=== PATIENT | male | born 1955 | race Caucasian/White ===

== ENCOUNTER → 2016-10-13 | Outpatient (CLI) | payer OTHER | END | disposition home or self-care (01) | LOC: CFH 06:37 | PROVIDERS: ATTEND Physician Assistant | DX: S83.231A Complex tear of medial meniscus, current injury, right knee, initial encounter (principal); M17.11 Unilateral primary osteoarthritis, right knee; X58.XXXA Exposure to other specified factors, initial encounter; Y93.89 Activity, other specified; Y92.89 Other specified places as the place of occurrence of the external cause; Y99.8 Other external cause status ==

== ENCOUNTER → 2016-11-08 | Outpatient (CLI) | payer OTHER | END | disposition home or self-care (01) | LOC: CFH 08:52 | PROVIDERS: ATTEND Physician Assistant | DX: Z12.5 Encounter for screening for malignant neoplasm of prostate (principal); I10 Essential (primary) hypertension; E11.69 Type 2 diabetes mellitus with other specified complication; E78.1 Pure hyperglyceridemia; F32.89 Other specified depressive episodes; G47.30 Sleep apnea, unspecified; J30.9 Allergic rhinitis, unspecified; R97.20 Elevated prostate specific antigen [PSA]; M54.9 Dorsalgia, unspecified; R42 Dizziness and giddiness; R00.2 Palpitations; M72.0 Palmar fascial fibromatosis [Dupuytren]; M25.561 Pain in right knee; M79.671 Pain in right foot; R79.9 Abnormal finding of blood chemistry, unspecified | CPT/HCPCS: 36415; 82550 ==

== ENCOUNTER → 2016-11-30 | Outpatient (CLI) | payer OTHER | END | disposition home or self-care (01) | LOC: CFH 07:52 | PROVIDERS: ATTEND Physician Assistant | DX: Z12.5 Encounter for screening for malignant neoplasm of prostate (principal); E11.69 Type 2 diabetes mellitus with other specified complication; I10 Essential (primary) hypertension; E78.1 Pure hyperglyceridemia; E29.1 Testicular hypofunction; J30.9 Allergic rhinitis, unspecified; R97.20 Elevated prostate specific antigen [PSA]; M54.9 Dorsalgia, unspecified; R00.2 Palpitations; G47.30 Sleep apnea, unspecified; M25.561 Pain in right knee; M79.671 Pain in right foot; M62.838 Other muscle spasm; G47.09 Other insomnia; L98.9 Disorder of the skin and subcutaneous tissue, unspecified; F32.89 Other specified depressive episodes; R42 Dizziness and giddiness; M72.0 Palmar fascial fibromatosis [Dupuytren]; R79.9 Abnormal finding of blood chemistry, unspecified; K64.9 Unspecified hemorrhoids | CPT/HCPCS: 36415; 80061; 80076; 82550 ==

== ENCOUNTER → 2017-03-28 | Outpatient (CLI) | payer OTHER ==
[2017-03-28 15:43] LABS: HEMOGLOBIN 14.9 g/dL (13.7-18.0); WHITE BLOOD COUNT 6.4 x10^3/uL (3.4-10)
[2017-03-28 15:55] LABS: PATH.CAST-FLAG NOT PRESENT; SPERM-FLAG NOT PRESENT; SRC-FLAG NOT PRESENT; XTAL-FLAG NOT PRESENT; YLC-FLAG NOT PRESENT
[2017-03-28 15:59] LABS: BLOOD UREA NITROGEN 20 mg/dL (7-18)
[2017-03-28 16:09] LABS: ASPARTATE AMINO TRANSFERASE 28 U/L (15-37); CARCINOEMBRYONIC ANTIGEN 1.24 ng/mL (0.0-3.00); PROSTATE SPECIFIC ANTIGEN 2.79 ng/mL (0.00-4.00); TOTAL IRON BINDING CAPACITY 346 mcg/dL (250-450)
== END | disposition home or self-care (01) ==
LOC: LAB 11:50
PROVIDERS: ATTEND Nurse Practitioner Primary Care
DX: Z00.01 Encounter for general adult medical examination with abnormal findings (principal); Z13.220 Encounter for screening for lipoid disorders; R53.83 Other fatigue; E11.69 Type 2 diabetes mellitus with other specified complication; E78.1 Pure hyperglyceridemia; I10 Essential (primary) hypertension; G47.30 Sleep apnea, unspecified; R01.1 Cardiac murmur, unspecified; R59.9 Enlarged lymph nodes, unspecified; R79.9 Abnormal finding of blood chemistry, unspecified; Z79.899 Other long term (current) drug therapy
CPT/HCPCS: 36415; 80053; 80061; 80074; 81001; 82043; 82105; 82232; 82248; 82378; 82390; 83036; 83516; 83540; 83550; 84153; 84439; 84443; 84480; 85025; 86644; 86645; 86663; 86664; 86665; 86747; 87077; 87086

== ENCOUNTER → 2017-04-04 | Outpatient (CLI) | payer OTHER | END | disposition home or self-care (01) | LOC: CFH 12:44 | PROVIDERS: ATTEND Nurse Practitioner Primary Care | DX: R59.9 Enlarged lymph nodes, unspecified (principal); E11.69 Type 2 diabetes mellitus with other specified complication; E78.1 Pure hyperglyceridemia; I10 Essential (primary) hypertension; Z79.899 Other long term (current) drug therapy | CPT/HCPCS: 76536 ==

== ENCOUNTER → 2017-04-07 | Outpatient (CLI) | payer OTHER ==
[2017-04-07 13:02] LABS: PATH.CAST-FLAG NOT PRESENT; SPERM-FLAG NOT PRESENT; SRC-FLAG NOT PRESENT; XTAL-FLAG NOT PRESENT; YLC-FLAG NOT PRESENT
== END | disposition home or self-care (01) ==
LOC: CFH 11:14
PROVIDERS: ATTEND Nurse Practitioner Primary Care
DX: N39.0 Urinary tract infection, site not specified (principal)
CPT/HCPCS: 81001; 87086

== ENCOUNTER → 2017-04-19 | Outpatient (CLI) | payer OTHER | END | disposition home or self-care (01) | LOC: CFH 06:41 | PROVIDERS: ATTEND Nurse Practitioner Primary Care | DX: K80.20 Calculus of gallbladder without cholecystitis without obstruction (principal); R16.1 Splenomegaly, not elsewhere classified; E11.69 Type 2 diabetes mellitus with other specified complication; E78.1 Pure hyperglyceridemia; I10 Essential (primary) hypertension; G47.30 Sleep apnea, unspecified; Z79.899 Other long term (current) drug therapy | CPT/HCPCS: 76700 ==

== ENCOUNTER → 2017-06-23 | Outpatient (CLI) | payer OTHER ==
[2017-06-23 13:28] LABS: BLOOD UREA NITROGEN 20 mg/dL (7-18)
[2017-06-23 13:29] LABS: ASPARTATE AMINO TRANSFERASE 29 U/L (15-37); PROSTATE SPECIFIC ANTIGEN 2.48 ng/mL (0.00-4.00)
[2017-06-25 16:06] LABS: TESTOSTERONE FREE DIRECT 12.3 pg/mL (6.6-18.1)
== END | disposition home or self-care (01) ==
LOC: CFH 07:25
PROVIDERS: ATTEND Internal Medicine
DX: Z12.5 Encounter for screening for malignant neoplasm of prostate (principal); R76.0 Raised antibody titer; E11.69 Type 2 diabetes mellitus with other specified complication; I10 Essential (primary) hypertension; E78.1 Pure hyperglyceridemia; F32.89 Other specified depressive episodes; J30.9 Allergic rhinitis, unspecified; E29.1 Testicular hypofunction; R97.20 Elevated prostate specific antigen [PSA]; M54.9 Dorsalgia, unspecified; R42 Dizziness and giddiness; R00.2 Palpitations; M72.0 Palmar fascial fibromatosis [Dupuytren]; G47.30 Sleep apnea, unspecified; M25.561 Pain in right knee; M79.671 Pain in right foot; R79.9 Abnormal finding of blood chemistry, unspecified; M62.838 Other muscle spasm; R74.0 Nonspecific elevation of levels of transaminase and lactic acid dehydrogenase [LDH]; R59.1 Generalized enlarged lymph nodes
CPT/HCPCS: 36415; 76700; 80053; 80061; 83036; 84153; 84402; 84403

== ENCOUNTER → 2017-09-02 | Outpatient (CLI) | payer OTHER ==
[2017-09-02 12:49] LABS: ANION GAP 7 mmol/L (5-15); CALCIUM 8.8 mg/dL (8.5-10.1); CHLORIDE 105 mmol/L (98-107)
[2017-09-02 12:54] LABS: ALANINE AMINOTRANSFERASE 43 U/L (12-78); ALKALINE PHOSPHATASE 70 U/L (45-117); BILIRUBIN,TOTAL 0.8 mg/dL (0.2-1.0); CREATINE KINASE, TOTAL 236 U/L (39-308); CREATININE 1.47 mg/dL (0.7-1.3); TOTAL PROTEIN 7.1 g/dL (6.4-8.2)
== END | disposition home or self-care (01) ==
LOC: CFH 06:49
PROVIDERS: ATTEND Physician Assistant
DX: Z12.5 Encounter for screening for malignant neoplasm of prostate (principal); E11.69 Type 2 diabetes mellitus with other specified complication; I10 Essential (primary) hypertension; E78.5 Hyperlipidemia, unspecified; F32.89 Other specified depressive episodes; J30.9 Allergic rhinitis, unspecified; E29.1 Testicular hypofunction; R97.20 Elevated prostate specific antigen [PSA]; M54.9 Dorsalgia, unspecified; R42 Dizziness and giddiness; M72.0 Palmar fascial fibromatosis [Dupuytren]; G47.30 Sleep apnea, unspecified; M25.561 Pain in right knee; M79.671 Pain in right foot; R79.9 Abnormal finding of blood chemistry, unspecified; M62.838 Other muscle spasm; R74.0 Nonspecific elevation of levels of transaminase and lactic acid dehydrogenase [LDH]; R59.1 Generalized enlarged lymph nodes; N28.9 Disorder of kidney and ureter, unspecified; K80.20 Calculus of gallbladder without cholecystitis without obstruction; E78.1 Pure hyperglyceridemia
CPT/HCPCS: 36415; 80053; 82550

== ENCOUNTER → 2017-10-31 | Outpatient (CLI) | payer OTHER ==
[2017-10-31 15:27] LABS: MICROSCOPIC NOT IND
[2017-10-31 15:38] LABS: ALANINE AMINOTRANSFERASE 50 U/L (12-78); ALBUMIN 4.2 g/dL (3.4-5.0); ANION GAP 10 mmol/L (5-15); CALCIUM 9.3 mg/dL (8.5-10.1); CHLORIDE 101 mmol/L (98-107); CREATININE 1.62 mg/dL (0.7-1.3); CULTURE INDICATED? NO
[2017-10-31 15:41] LABS: ALKALINE PHOSPHATASE 152 U/L (45-117); BILIRUBIN,TOTAL 0.6 mg/dL (0.2-1.0); TOTAL PROTEIN 7.8 g/dL (6.4-8.2)
== END | disposition home or self-care (01) ==
LOC: CFH 11:23
PROVIDERS: ATTEND Nurse Practitioner Primary Care
DX: E11.69 Type 2 diabetes mellitus with other specified complication (principal); E78.1 Pure hyperglyceridemia; R53.83 Other fatigue; I10 Essential (primary) hypertension; R59.9 Enlarged lymph nodes, unspecified; R01.1 Cardiac murmur, unspecified; R30.0 Dysuria; R79.9 Abnormal finding of blood chemistry, unspecified; G47.30 Sleep apnea, unspecified; Z79.899 Other long term (current) drug therapy
CPT/HCPCS: 36415; 80053; 81003

== ENCOUNTER → 2020-08-08 | Outpatient (CLI) | payer MEDICARE ==
[~2020-08-08] MED LIST: ASCO500T8 PO; ATOR10TA PO; CHOL10003 PO; CYAN100T22 PO; DULA0.75 SC; INSU100I13 SC; LOSA50TA14 PO; LUTE1CAP6 PO; TAMS-11 PO; UBID30CA9 PO
[2020-08-08 10:02] LABS: INTERNATIONAL NORMALIZED RATIO 1.03 (0.93-1.1)
[2020-08-08 10:05] LABS: CHLORIDE 109 mmol/L (98-107)
[2020-08-08 10:10] LABS: ALANINE AMINOTRANSFERASE 46 U/L (12-78); ALBUMIN 4.2 g/dL (3.4-5.0); ALKALINE PHOSPHATASE 91 U/L (45-117); ANION GAP 3 mmol/L (5-15); BILIRUBIN,TOTAL 0.9 mg/dL (0.2-1.0); CALCIUM 9.3 mg/dL (8.5-10.1); CREATININE 1.35 mg/dL (0.7-1.3); TOTAL PROTEIN 7.6 g/dL (6.4-8.2)
[2020-08-08 10:14] LABS: BASOPHILS % (AUTO) 1 % (0-1); EOSINOPHILS % (AUTO) 4 % (1-7); LYMPHOCYTES % (AUTO) 27 % (22-44); MEAN CORPUSCULAR HGB CONC 35.1 g/dL (33.2-36.2); MEAN PLATELET VOLUME 9.4 fL (7.4-10.4); MONOCYTES % (AUTO) 9 % (2-9); NEUTROPHILS % (AUTO) 60 % (42-75); PLATELET COUNT 158 x10^3/uL (130-400); RED BLOOD COUNT 4.95 x10^6/uL (4.38-5.82); RED CELL DISTRIBUTION WIDTH 12.5 % (9.4-14.8)
[2020-08-08 10:15] LABS: MD NO
== END | disposition home or self-care (01) ==
LOC: STAR 07:32
PROVIDERS: ATTEND Surgery
DX: Z01.818 Encounter for other preprocedural examination (principal); C43.59 Malignant melanoma of other part of trunk; R94.31 Abnormal electrocardiogram [ECG] [EKG]; Z20.822 Contact with and (suspected) exposure to COVID-19
CPT/HCPCS: 80053; 85025; 85610; 87635; 93005

== ENCOUNTER 2020-08-14 06:08 | Day surgery (SDC) | payer MEDICARE ==
[~2020-08-14] VITALS: Ht 182.9 cm; Wt 114.0 kg
[2020-08-14] MEDS ORDERED: CHLORHEXIDINE 15 ML UDC MM ONE (07:00)
[2020-08-14] MEDS ORDERED: LACTATED RINGERS 1,000 ML IV SCH (07:00)
[2020-08-14] MEDS ORDERED: EPINEPHRINE 1 MG/ML, 1ML ONE (08:21)
[2020-08-14] MEDS ORDERED: BUPIVACAINE/PF 0.5% ONE (08:21)
[2020-08-14] MEDS ORDERED: FENTANYL PF 250 MCG/5ML ONE (09:05)
[2020-08-14] MEDS ORDERED: MIDAZOLAM 1 MG/ML, 2ML ONE (09:05)
[2020-08-14] MEDS ORDERED: LABETALOL 5MG/ML, 20ML IV PRN (10:30)
[2020-08-14] MEDS ORDERED: FENTANYL PF 100 MCG/2ML IV PRN (10:30)
[2020-08-14] MEDS ORDERED: ACETAMINOPHEN 325 MG TABLET PO PRN (10:30)
[2020-08-14] MEDS ORDERED: OXYcodone 5 MG/5 ML ORAL.SOL UDC PO PRN (10:30)
[2020-08-14] MEDS ORDERED: DIPHENHYDRAMINE 50 MG/ML, 1ML IVPush PRN (10:30)
[2020-08-14] MEDS ORDERED: HYDROmorphone 1 MG/ML, 1ML INJ IVPush PRN (10:30)
[2020-08-14] MEDS ORDERED: hydrALAzine 20 MG/ML, 1ML IV PRN (10:30)
[2020-08-14] MEDS ORDERED: DIAZEPAM 5 MG/ML, 2ML IVPush PRN (10:30)
[2020-08-14] MEDS ORDERED: MEPERIDINE/PF 25MG/0.5ML IVPush PRN (10:30)
[2020-08-14] MEDS ORDERED: PROMETHAZINE 25 MG/ML, 1ML IVPush PRN (10:30)
[2020-08-14] MEDS ORDERED: ONDANSETRON 2MG/ML, 2ML IVPush PRN (10:30)
[2020-08-14] MEDS ORDERED: EPHEDRINE 50 MG/ML, 1ML ONE (10:57)
[2020-08-14] MEDS ORDERED: ONDANSETRON 2MG/ML, 2ML ONE (10:57)
[2020-08-14] MEDS ORDERED: PROPOFOL 10 MG/ML, 20ML ONE (10:57)
[2020-08-14] MEDS ORDERED: GLYCOPYRROLATE 0.2MG/1ML, 5ML ONE (10:57)
[2020-08-14] MEDS ORDERED: ROCURONIUM 10 MG/ML,10ML ONE (10:57)
[2020-08-14] MEDS ORDERED: SUCCINYLCHOLINE 20 MG/ML, 10ML ONE (10:57)
[2020-08-14] MEDS ORDERED: NEOSTIGMINE 1 MG/ML, 10ML ONE (10:57)
[2020-08-14] MEDS ORDERED: CEFAZOLIN 1,000 MG ONE (10:57)
[2020-08-14] MEDS ORDERED: HYDR-1067 PO (12:42)
== END 2020-08-14 14:27 | disposition home or self-care (01) ==
LOC: OUT 06:08 → EDSTATUS 10:00 → OUT 14:27
PROVIDERS: ATTEND Surgery
DX: C43.59 Malignant melanoma of other part of trunk (principal); I10 Essential (primary) hypertension; E11.40 Type 2 diabetes mellitus with diabetic neuropathy, unspecified; E78.5 Hyperlipidemia, unspecified; G47.30 Sleep apnea, unspecified; Z88.0 Allergy status to penicillin; Z72.0 Tobacco use; Z79.4 Long term (current) use of insulin; Z79.899 Other long term (current) drug therapy; Z72.89 Other problems related to lifestyle; Z98.890 Other specified postprocedural states
CPT/HCPCS: 14000; 38525; 78195; 82962; 88307; 88342; A9541; J0171; J0330; J0690; J2250; J2405; J2704; J2710; J3010; J7120